=== PATIENT | male | born 1965 | race African-American/Black ===

== ENCOUNTER → 2023-12-15 | Outpatient (REF) ==
[~2023-12-15] MED LIST: AMLO10TA; ASPI81TA3; GLUC1000; HYDR25TA6; INSUH10VL SC; INSULIN 70/30; LIPI10TA; LISI40TA; SLIDING SCALE
== END ==
LOC: M PLAIMG 12:05
PROVIDERS: ATTEND Internal Medicine
DX: R06.02 Shortness of breath (principal)